=== PATIENT | female | born 1985 | race African-American/Black ===

== ENCOUNTER 2020-11-28 11:48 | Emergency (ER) | payer SELFPAY ==
[~2020-11-28] VITALS: Ht 167.6 cm; Wt 70.5 kg
[2020-11-28 11:59] VITALS: BP 125/80
[2020-11-28] MEDS ORDERED: HYDR-2759 PO (13:02)
--- NOTE | 2020-11-28 13:03 | PHYS DOC ---
Past History Past Surgical History: Gastric Bypass, Hysterectomy Alcohol Use: None Adult General Chief Complaint Chief Complaint: ANKLE PROBLEM HPI HPI Patient is a 25-year-old female patient presenting to the ED today complaining of 7 out of 10 sharp intermittent right ankle pain, patient states symptoms began on November 15, 2020 after she rolled her ankle going down 3 steps. Patient states she was seen at a hospital in [place]. She states they did x-rays which were negative for any acute findings. She states she was given an orthopedic boot which she left in [place] because she was not comfortable going through security with it. Patient denies any new injuries. Patient states her pain is worse on weightbearing. Right lower extremity. Review of Systems Review of Systems Constitutional: Denies fever or chills [] Musculoskeletal: Right ankle with no obvious deformity, soft tissue swelling noted on the right lateral ankle. Full range of motion to the right ankle, feet and toes. Plus right pedal pulse. Cap refill less than 2 seconds to right toes. Sensation intact to the right lower extremity. Integument: Denies rash or skin lesions [] Neurologic: Denies headache, focal weakness or sensory changes [] All other systems were reviewed and found to be within normal limits, except as documented in this note. Physical Exam Physical Exam Constitutional: Well developed, well nourished, no acute distress, non-toxic appearance. [] HENT: Normocephalic, atraumatic, bilateral external ears normal, oropharynx moist, no oral exudates, nose normal. [] Eyes: PERRLA, EOMI, conjunctiva normal, no discharge. [] Neck: Normal range of motion, no tenderness, supple, no stridor. [] Cardiovascular:Heart rate regular rhythm, no murmur [] Lungs & Thorax: Bilateral breath sounds clear to auscultation [] Abdomen: Bowel sounds normal, soft, no tenderness, no masses, no pulsatile masses. [] Skin: Warm, dry, no erythema, no rash. [] Back: No tenderness, no CVA tenderness. [] Extremities: No tenderness, no cyanosis, no clubbing, ROM intact, no edema. [] Neurologic: Alert and oriented X 3, normal motor function, normal sensory function, no focal deficits noted. [] Psychologic: Affect normal, judgement normal, mood normal. [] Current Patient Data Vital Signs Vital Signs Date Time Temp Pulse Resp B/P (MAP) Pulse Ox O2 Delivery O2 Flow Rate FiO2 11/28/20 11:59 98.4 87 18 125/80 97 Room Air EKG EKG [] Radiology/Procedures Radiology/Procedures [] Heart Score C/O Chest Pain: N/A Risk Factors: Risk Factors: DM, Current or recent (<one month) smoker, HTN, HLP, family history of CAD, obesity. Risk Scores: Risk Factors: DM, Current or recent (<one month) smoker, HTN, HLP, family history of CAD, obesity. Course & Med Decision Making Course & Med Decision Making Pertinent Labs and Imaging studies reviewed. (See chart for details) This is a 35-year-old female patient presented to the ED today with right ankle pain, symptoms began November 15, 2020 after rolling her ankle. Patient was seen in [place] and had a negative x-ray. Provided orthopedic doctor for follow-up. She states she has plans to see [place] orthopedic doctors but she does not have insurance. Discharge to home. Moe wrap applied to the right ankle by the ED RN, neurovascular exam is intact. Ice elevation encouraged Dragon Disclaimer Dragon Disclaimer This electronic medical record was generated, in whole or in part, using a voice recognition dictation system. Departure Departure: Impression: Primary Impression: Right ankle pain Disposition: HOME / SELF CARE / HOMELESS Condition: STABLE Referrals: PCPNICOL (PCP) CIRO PALACIO MD follow up in one week Patient Instructions: Ankle Pain Additional Instructions: You were evaluated in the emergency department right ankle pain. Please follow- up with the orthopedic doctor. Try to ice and elevate the affected extremity. Scripts Hydrocodone/Acetaminophen (Hydrocodone-Acetamin 5-325 mg) 1 Each Tablet 1 EACH PO Q6HRS, #10 TAB Prov: DARSHAN BOLIVAR WARRANT CLERK 11/28/20 Problem Qualifiers Primary Impression: Right ankle pain Chronicity: acute Qualified Codes: M25.571 - Pain in right ankle and joints of right foot DARSHAN BOLIVAR WARRANT CLERK Nov 28, 2020 13:03
== END 2020-11-28 13:11 | disposition home or self-care (01) ==
LOC: ER 11:48
DX: M25.571 Pain in right ankle and joints of right foot (principal); Z90.710 Acquired absence of both cervix and uterus
CPT/HCPCS: 99282